=== PATIENT | male | born 1975 ===

== ENCOUNTER 2022-03-20 05:30 | Day surgery (SDC) | payer OTHER ==
[~2022-03-20] VITALS: Ht 172.7 cm; Wt 86.2 kg
[~2022-03-20 05:30] MED LIST: CRESTOR20 MG PO
== END 2022-03-20 13:45 | disposition home or self-care (01) ==
LOC: CIR.AMB 05:30
PROVIDERS: ATTEND Otolaryngology Otology & Neurotology
DX: H80.01 Otosclerosis involving oval window, nonobliterative, right ear (principal); Z20.822 Contact with and (suspected) exposure to COVID-19